=== PATIENT | female | born 2000 | race Two or more races ===

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

== ENCOUNTER → 2022-09-01 | Outpatient (CLI) | payer OTHER | END | disposition home or self-care (01) | LOC: MRI 10:57 | DX: S83.271A Complex tear of lateral meniscus, current injury, right knee, initial encounter (principal) | CPT/HCPCS: 73718 ==

== ENCOUNTER 2023-02-12 09:43 | Emergency (ER) | payer OTHER ==
[~2023-02-12] VITALS: Ht 167.6 cm; Wt 77.1 kg
[~2023-02-12 09:43] MED LIST: DICLOFENAC POTA50 MG PO
== END 2023-02-12 12:10 | disposition home or self-care (01) ==
LOC: EMR PED 09:43
DX: S80.02XA Contusion of left knee, initial encounter (principal); W10.9XXA Fall (on) (from) unspecified stairs and steps, initial encounter; Y93.9 Activity, unspecified; Y92.9 Unspecified place or not applicable; Y99.9 Unspecified external cause status

== ENCOUNTER 2023-10-19 08:05 | Emergency (ER) | payer OTHER ==
[~2023-10-19] VITALS: Ht 165.1 cm; Wt 74.8 kg
[2023-10-19] MEDS ORDERED: 0.9 % SODIUM CHLORIDE 1,000 ML IV ONE (08:45)
[2023-10-19] MEDS ORDERED: CEFTRIAXONE SODIUM 2,000 MG VIAL IM ONE (08:45)
[2023-10-19 09:38] LABS: HEMATOCRIT 38.8 % (36.0-45.00); HEMOGLOBIN 13.4 g/dL (12.0-15.00); MEAN CELL VOLUME 86.9 fL (80.00-100.00); MEAN CORPUSCULAR HEMOGLOBIN 30.1 pg (27.00-32.0); MEAN CORPUSCULAR HGB CONC 34.6 g/dl (32.0-36.0); PLATELET COUNT 209 K/uL (150-450); RED BLOOD COUNT 4.47 M/uL (4.00-6.00); RED CELL DISTRIBUTION WIDTH 13.7 % (11.5-14.5)
[2023-10-19 11:13] LABS: PH,URINE 8.5 (5.0-8.0); URINE APPEARANCE Clear; URINE BILIRRUBIN Negative (NEGATIVE); URINE BLOOD Negative; URINE COLOR Yellow; URINE GLUCOSE Negative (NEGATIVE); URINE LEUKOCYTE Negative; URINE NITRATE Negative; URINE PROTEIN Trace (NEGATIVE)
[2023-10-19] MEDS ORDERED: ACETAMINOPHEN 500 MG GEL..CAP PO STA (11:15)
[2023-10-19 11:18] LABS: URINE BACTERIA 283.3 uL (0.0-1933); URINE EPITHELIAL CELLS 12.5 uL (0.0-38.8); URINE RBC 6.1 uL (0.0-20.8); URINE WBC 6.1 uL (0.0-23.2)
== END 2023-10-19 12:12 | disposition home or self-care (01) ==
LOC: ER 08:06
PROVIDERS: General Practice
DX: R53.81 Other malaise (principal); J00 Acute nasopharyngitis [common cold]; R00.0 Tachycardia, unspecified; E86.0 Dehydration; Z20.822 Contact with and (suspected) exposure to COVID-19

== ENCOUNTER 2023-11-18 06:51 | Emergency (ER) | payer OTHER ==
[~2023-11-18] VITALS: Ht 165.1 cm; Wt 74.8 kg
[2023-11-18] MEDS ORDERED: BUTALB/ACETAMINOPHEN/CAFFEINE 1 TAB TABLET PO ONE ×2 (08:15→08:19)
[2023-11-18 08:40] LABS: HEMATOCRIT 37.4 % (36.0-45.00); HEMOGLOBIN 13.1 g/dL (12.0-15.00); MEAN CELL VOLUME 85.4 fL (80.00-100.00); MEAN CORPUSCULAR HEMOGLOBIN 29.9 pg (27.00-32.0); PLATELET COUNT 196 K/uL (150-450); RED BLOOD COUNT 4.38 M/uL (4.00-6.00); RED CELL DISTRIBUTION WIDTH 13.5 % (11.5-14.5)
[2023-11-18] MEDS ORDERED: BUTALB-ACETAMI1 EACH PO (09:17)
== END 2023-11-18 09:21 | disposition home or self-care (01) ==
LOC: ER 06:52
PROVIDERS: General Practice
DX: G43.909 Migraine, unspecified, not intractable, without status migrainosus (principal); Z20.822 Contact with and (suspected) exposure to COVID-19

== ENCOUNTER 2023-12-28 18:24 | Emergency (ER) | payer OTHER ==
[~2023-12-28] VITALS: Ht 165.1 cm; Wt 68.0 kg
[~2023-12-28 18:24] MED LIST changes: +BUTALB-ACETAMI1 EACH PO
[2023-12-28] MEDS ORDERED: HYDROXYCHLOROQ200 MG PO (18:37)
[2023-12-28] MEDS ORDERED: FAMOTIDINE/PF 20 MG in 0.9 % SODIUM CHLORIDE 8 ML IV PUSH STA (18:37)
[2023-12-28] MEDS ORDERED: ONDANSETRON HCL 2 MG/ML VIAL IV ONE (18:45)
[2023-12-28] MEDS ORDERED: FAMOTIDINE/PF 20 MG/2 ML VIAL ONE (19:12)
[2023-12-28] MEDS ORDERED: ONDANSETRON HCL 2 MG/ML VIAL ONE (19:12)
[2023-12-28 19:35] LABS: HEMATOCRIT 41.1 % (36.0-45.00); HEMOGLOBIN 14.3 g/dL (12.0-15.00); MEAN CELL VOLUME 85.5 fL (80.00-100.00); MEAN CORPUSCULAR HEMOGLOBIN 29.7 pg (27.00-32.0); MEAN CORPUSCULAR HGB CONC 34.8 g/dl (32.0-36.0); PLATELET COUNT 239 K/uL (150-450); RED BLOOD COUNT 4.81 M/uL (4.00-6.00); RED CELL DISTRIBUTION WIDTH 12.9 % (11.5-14.5)
[2023-12-28 20:01] LABS: URINE APPEARANCE Turbid; URINE BILIRRUBIN Negative (NEGATIVE); URINE BLOOD Large; URINE COLOR Yellow; URINE GLUCOSE Negative (NEGATIVE); URINE LEUKOCYTE Moderate; URINE NITRATE Positive
[2023-12-28 20:04] LABS: URINE EPITHELIAL CELLS 68.9 uL (0.0-38.8); URINE RBC 10.5 uL (0.0-20.8); URINE WBC 124.9 uL (0.0-23.2)
[2023-12-28 20:19] LABS: ALBUMIN 4.5 gm/dL (3.4-5.0); BILIRUBIN TOTAL 1.03 mg/dL (0.3-1.2); CALCIUM 9.6 mg/dL (8.5-10.1); CREATININE SERUM 0.77 mg/dL (0.55-1.02); GFR 94.63; GLOBULINA 3.8 G/DL (2.4-3.5); POTASSIUM 4.03 mEq/L (3.5-5.1); TOTAL PROTEIN 8.3 gm/dL (6.4-8.2)
[2023-12-28 21:00] LABS: URINE BACTERIA > 9821.5 uL (0.0-1933); URINE KETONE 80 (NEGATIVE); URINE PROTEIN 100 (NEGATIVE)
[2023-12-28] MEDS ORDERED: CEFTRIAXONE SODIUM 1,000 MG VIAL ONE (21:04)
[2023-12-28] MEDS ORDERED: BACTRIM DS TAB1 EACH PO (21:05)
[2023-12-28] MEDS ORDERED: CEFTRIAXONE SODIUM 1,000 MG VIAL IV ONE (21:15)
== END 2023-12-28 21:12 | disposition home or self-care (01) ==
LOC: ER 18:25
PROVIDERS: General Practice
DX: N39.0 Urinary tract infection, site not specified (principal); R10.9 Unspecified abdominal pain; M06.819 Other specified rheumatoid arthritis, unspecified shoulder

== ENCOUNTER 2024-03-27 09:07 | Outpatient (CLI) | payer OTHER ==
[~2024-03-27 09:07] MED LIST changes: +BACTRIM DS TAB1 EACH PO; +HYDROXYCHLOROQ200 MG PO
[2024-03-27 09:48] LABS: HEMATOCRIT 39.7 % (36.0-45.00); HEMOGLOBIN 13.4 g/dL (12.0-15.00); MEAN CELL VOLUME 87.8 fL (80.00-100.00); MEAN CORPUSCULAR HEMOGLOBIN 29.7 pg (27.00-32.0); MEAN CORPUSCULAR HGB CONC 33.9 g/dl (32.0-36.0); PLATELET COUNT 237 K/uL (150-450); RED BLOOD COUNT 4.52 M/uL (4.00-6.00); RED CELL DISTRIBUTION WIDTH 13.3 % (11.5-14.5)
[2024-03-27 09:57] LABS: ERYTHROCYTE SEDIMENTATION RATE 3 mm/hr
[2024-03-27 10:57] LABS: ALKALINE PHOSPHATASE 70 U/L (50-136); ALT/SGPT 37 U/L (12-78); ANION GAP 7 (10.0-20.0); AST/SGOT 20 U/L (15-37); BILIRUBIN TOTAL 0.67 mg/dL (0.3-1.2); BLOOD UREA NITROGEN 13 mg/dL (7-18); BUN CREA RATIO 17 (7.0-25.0); CALCIUM 8.9 mg/dL (8.5-10.1); CARBON DIOXIDE 30 mEq/L (21-32); CHLORIDE 107 mmol/L (98-107); CREATININE SERUM 0.75 mg/dL (0.55-1.02); GFR 97.55; GLOBULINA 3.1 G/DL (2.4-3.5); GLUCOSE FASTING 87 mg/dL (65-100); OSMOLALITY SERUM 277 MOSM/KG (275-295); POTASSIUM 4.57 mEq/L (3.5-5.1); SODIUM 139 mmol/L (136-145); TOTAL PROTEIN 7.1 gm/dL (6.4-8.2)
[2024-03-27 10:58] LABS: C-REACTIVE PROTEIN < 0.29 MG/DL (0.00-0.29)
== END 2024-03-27 09:08 | disposition home or self-care (01) ==
LOC: LAB 09:07
PROVIDERS: ATTEND Internal Medicine Rheumatology
DX: Z79.899 Other long term (current) drug therapy (principal); M06.041 Rheumatoid arthritis without rheumatoid factor, right hand; M06.042 Rheumatoid arthritis without rheumatoid factor, left hand

== ENCOUNTER 2024-04-27 09:01 | Outpatient (CLI) | payer OTHER ==
[2024-04-27 10:13] LABS: ALBUMIN 3.8 gm/dL (3.4-5.0); BILIRUBIN TOTAL 0.64 mg/dL (0.3-1.2); CREATININE SERUM 0.68 mg/dL (0.55-1.02); GFR 109.22; POTASSIUM 3.92 mEq/L (3.5-5.1); TOTAL PROTEIN 6.8 gm/dL (6.4-8.2)
== END 2024-04-27 09:02 | disposition home or self-care (01) ==
LOC: LAB 09:01
PROVIDERS: ATTEND Internal Medicine
DX: R94.5 Abnormal results of liver function studies (principal)

== ENCOUNTER 2024-05-19 08:47 | Outpatient (CLI) | payer OTHER ==
[2024-05-19 10:47] LABS: HEMATOCRIT 39.2 % (36.0-45.00); HEMOGLOBIN 13.5 g/dL (12.0-15.00); MEAN CELL VOLUME 87.2 fL (80.00-100.00); MEAN CORPUSCULAR HEMOGLOBIN 29.9 pg (27.00-32.0); MEAN CORPUSCULAR HGB CONC 34.3 g/dl (32.0-36.0); PLATELET COUNT 196 K/uL (150-450); RED CELL DISTRIBUTION WIDTH 12.8 % (11.5-14.5)
[2024-05-19 11:26] LABS: ALBUMIN 3.8 gm/dL (3.4-5.0); BILIRUBIN TOTAL 0.78 mg/dL (0.3-1.2); CALCIUM 9.2 mg/dL (8.5-10.1); CREATININE SERUM 0.72 mg/dL (0.55-1.02); GFR 102.25; GLOBULINA 3.5 G/DL (2.4-3.5); POTASSIUM 4.19 mEq/L (3.5-5.1); TOTAL PROTEIN 7.3 gm/dL (6.4-8.2)
== END 2024-05-19 08:48 | disposition home or self-care (01) ==
LOC: LAB 08:47
PROVIDERS: ATTEND Internal Medicine
DX: R94.5 Abnormal results of liver function studies (principal); Z22.7 Latent tuberculosis

== ENCOUNTER → 2024-09-25 08:16 | Outpatient (CLI) | payer OTHER ==
[2024-09-25 08:56] LABS: BASO % 0.5 % (0.1-1.2); EOS # 0.07 (0.04-0.54); EOS % 1.1 % (0.7-7.0); HEMATOCRIT 40.2 % (34.1-44.9); HEMOGLOBIN 13.6 g/dL (11.2-15.7); LYMPH # 1.79 (1.18-3.74); LYMPH % 28.8 % (19.3-53.1); MEAN CORPUSCULAR HEMOGLOBIN 29.4 pg (25.6-32.2); MONO # 0.46 (0.24-0.82); MONO % 7.4 % (4.7-12.5); NEUT # 3.84 (1.56-6.13); NEUT % 61.9 % (34.0-71.1); PLATELET COUNT 238 K/uL (163-369); RED BLOOD COUNT 4.63 M/uL (3.93-5.22); RED CELL DISTRIBUTION WIDTH 12.4 % (11.6-14.4)
[2024-09-25 09:05] LABS: URINE APPEARANCE Clear; URINE BILIRRUBIN Negative (NEGATIVE); URINE BLOOD Negative; URINE COLOR Yellow; URINE GLUCOSE Negative (NEGATIVE); URINE KETONE Negative (NEGATIVE); URINE LEUKOCYTE Trace; URINE NITRATE Negative; URINE PROTEIN Negative (NEGATIVE); URINE UROBILINOGEN 0.2 E.U./dl
[2024-09-25 09:09] LABS: URINE EPITHELIAL CELLS 29.9 uL (0.0-38.8); URINE RBC 2.7 uL (0.0-20.8); URINE WBC 11.7 uL (0.0-23.2)
[2024-09-25 09:22] LABS: URINE CAST 0.14 uL (0.0-1.40)
[2024-09-25 10:12] LABS: ALBUMIN 3.7 gm/dL (3.4-5.0); BILIRUBIN TOTAL 0.75 mg/dL (0.3-1.2); CALCIUM 8.9 mg/dL (8.5-10.1); CHOL HDL RATIO 2.8 (0-5.0); CREATININE SERUM 0.7 mg/dL (0.55-1.02); GFR 104.64; GLOBULINA 3.3 G/DL (2.4-3.5); POTASSIUM 3.94 mEq/L (3.5-5.1); TSH 1.24 uIU/mL (0.358-3.74)
[2024-09-26 07:11] LABS: HSV I IGG TYPE SPECIFIC Non Reactive (Non Reactive); hav igm Negative (Negative); hcv Non Reactive (Non Reactive); hep b c Negative (Negative); hep b s ag Negative (Negative)
== END | disposition home or self-care (01) ==
LOC: LAB 08:16
PROVIDERS: ATTEND Obstetrics & Gynecology
DX: E78.00 Pure hypercholesterolemia, unspecified (principal); E04.9 Nontoxic goiter, unspecified; E08.9 Diabetes mellitus due to underlying condition without complications; N39.0 Urinary tract infection, site not specified; R10.9 Unspecified abdominal pain; Z11.4 Encounter for screening for human immunodeficiency virus [HIV]; Z11.3 Encounter for screening for infections with a predominantly sexual mode of transmission; A60.00 Herpesviral infection of urogenital system, unspecified; B17.0 Acute delta-(super) infection of hepatitis B carrier; A53.9 Syphilis, unspecified

== ENCOUNTER → 2024-12-20 | Emergency (ER) | payer OTHER ==
[~2024-12-20] VITALS: Ht 165.1 cm; Wt 77.1 kg
[~2024-12-20] MED LIST changes: +ACETAMINOPHEN 500 MG GEL..CAP PO ONE; +CEFTRIAXONE SODIUM 1,000 MG VIAL IM ONE; +CEFTRIAXONE SODIUM 1,000 MG VIAL ONE; +DEXAMETHASONE SODIUM PHOSPHATE 4 MG/ML VIAL IM ONE; +DEXAMETHASONE SODIUM PHOSPHATE 4 MG/ML VIAL ONE; +DUI500 PO; +FLUOXETINE HCL10 MG; +ISONIAZID300 MG
[2024-12-20 17:12] LABS: BASO % 0.5 % (0.1-1.2); EOS # 0.18 (0.04-0.54); EOS % 1.6 % (0.7-7.0); LYMPH # 1.36 (1.18-3.74); LYMPH % 12.4 % (19.3-53.1); MEAN PLATELET VOLUME 9.20 fl (9.4-12.4); MONO # 0.80 (0.24-0.82); MONO % 7.3 % (4.7-12.5); NEUT # 8.53 (1.56-6.13); NEUT % 78.0 % (34.0-71.1); RED CELL DISTRIBUTION WIDTH 12.2 % (11.6-14.4)
[2024-12-20 17:43] LABS: COVID-19 AG NEGATIVE (NEGATIVE)
== END | disposition home or self-care (01) ==
LOC: ER 15:40
PROVIDERS: General Practice
DX: H66.90 Otitis media, unspecified, unspecified ear (principal); J06.9 Acute upper respiratory infection, unspecified; Z20.822 Contact with and (suspected) exposure to COVID-19

== ENCOUNTER → 2025-03-07 09:03 | Outpatient (CLI) | payer OTHER ==
[~2025-03-07 09:03] MED LIST changes: -ACETAMINOPHEN 500 MG GEL..CAP PO ONE; -CEFTRIAXONE SODIUM 1,000 MG VIAL IM ONE; -CEFTRIAXONE SODIUM 1,000 MG VIAL ONE; -DEXAMETHASONE SODIUM PHOSPHATE 4 MG/ML VIAL IM ONE; -DEXAMETHASONE SODIUM PHOSPHATE 4 MG/ML VIAL ONE
[2025-03-07 10:07] LABS: BASO % 0.4 % (0.1-1.2); EOS # 0.04 (0.04-0.54); EOS % 0.9 % (0.7-7.0); LYMPH # 0.94 (1.18-3.74); LYMPH % 20.5 % (19.3-53.1); MEAN PLATELET VOLUME 9.00 fl (9.4-12.4); MONO # 0.40 (0.24-0.82); MONO % 8.7 % (4.7-12.5); NEUT # 3.19 (1.56-6.13); NEUT % 69.5 % (34.0-71.1); RED CELL DISTRIBUTION WIDTH 12.1 % (11.6-14.4)
[2025-03-07 10:15] LABS: ERYTHROCYTE SEDIMENTATION RATE 4 mm/hr (0-20)
[2025-03-07 10:32] LABS: URINE APPEARANCE Clear; URINE BILIRRUBIN Negative (NEGATIVE); URINE BLOOD NHT; URINE COLOR Dark Yellow; URINE GLUCOSE Negative (NEGATIVE); URINE KETONE Trace (NEGATIVE); URINE LEUKOCYTE Negative; URINE NITRATE Negative; URINE PROTEIN Negative (NEGATIVE); URINE UROBILINOGEN 0.2 E.U./dl
[2025-03-07 10:34] LABS: URINE BACTERIA 52.7 uL (0.0-1933); URINE EPITHELIAL CELLS 27.6 uL (0.0-38.8); URINE RBC 6.0 uL (0.0-20.8); URINE WBC 3.3 uL (0.0-23.2)
[2025-03-07 10:47] LABS: URINE CAST 0.00 uL (0.0-1.40)
[2025-03-07 11:06] LABS: ALT/SGPT 31.0 U/L (12-78); AST/SGOT 22.0 U/L (15-37); BILIRUBIN TOTAL 0.34 mg/dL (0.3-1.2); BUN CREA RATIO 19.0 (7.0-25.0); CHOL HDL RATIO 3.1 (0-5.0); CREATININE SERUM 0.79 mg/dL (0.55-1.02); GFR 91.0; GLOBULINA 3.3 G/DL (2.4-3.5); GLUCOSE FASTING 78.0 mg/dL (65-100); HDL 55.0 mg/dl (40-60); LDL 105.0 mg/dl (0-130); OSMOLALITY SERUM 281.0 MOSM/KG (275-295); TSH 0.791 uIU/mL (0.358-3.74); VLDL 8.0 (0-39)
[2025-03-08 08:07] LABS: hav igm Negative (Negative); hep b c Negative (Negative); hep b s ag Negative (Negative)
[2025-03-08 10:11] LABS: COMPLEMENT C3 145 mg/dL (82-167); COMPLEMENT C4 27 mg/dL (12-38)
[2025-03-08 16:07] LABS: CYCLIC CITRULLINE PEPTIDE 6 units (0-19); DNA AB DOUBLE STRABDED < 1 IU/mL (0-9)
== END | disposition home or self-care (01) ==
LOC: LAB 09:03
DX: K75.4 Autoimmune hepatitis (principal); M06.9 Rheumatoid arthritis, unspecified; Z00.01 Encounter for general adult medical examination with abnormal findings; Z86.15 Personal history of latent tuberculosis infection; D64.89 Other specified anemias; I72.2 Aneurysm of renal artery; M32.8 Other forms of systemic lupus erythematosus; M02.88 Other reactive arthropathies, vertebrae; Z29.81 Encounter for HIV pre-exposure prophylaxis; D64.9 Anemia, unspecified; I10 Essential (primary) hypertension; E78.2 Mixed hyperlipidemia; E55.9 Vitamin D deficiency, unspecified; E03.9 Hypothyroidism, unspecified; E11.9 Type 2 diabetes mellitus without complications; M06.4 Inflammatory polyarthropathy